=== PATIENT | male | born 1950 | race Caucasian/White ===

== ENCOUNTER 2016-10-25 17:05 | Inpatient (IN) | payer MEDICARE, OTHER ==
[~2016-10-25] VITALS: Ht 182.9 cm; Wt 73.3 kg
[~2016-10-25 17:05] MED LIST: ACET325T14 PO; ASPI-496 PO; CHOL20002 PO; ENOX40SY4 SQ; HYDR-3138 PO; INSU100I18 SQ-INSULIN; LATA2.5D2 EACHEYE; LEVO100T PO; LEVO125T PO; LEVO1CAP3 PO; SENN1TAB7 PO; SILO8CAP PO; TIZA4TAB PO
[2016-10-25 18:44] LABS: HEMOGLOBIN 13.6 g/dL (13.7-18.0)
[2016-10-25 18:54] LABS: BLOOD UREA NITROGEN 15 mg/dL (7-18)
[2016-10-25 18:58] LABS: ASPARTATE AMINO TRANSFERASE 16 U/L (15-37)
[2016-10-25] MEDS ORDERED: SODIUM CHLORIDE FLUSH 10ML SYR IVF ONE (19:30)
[2016-10-25] MEDS ORDERED: OMNIPAQUE 350 MG/ML, 100ML BOTTLE ONE (22:05)
[2016-10-25] MEDS ORDERED: LEVO100T5 PO (22:31)
[2016-10-25] MEDS ORDERED: SODIUM CHLORIDE 0.9% 1,000 ML IV ONE (22:33)
[2016-10-25] MEDS ORDERED: HEPARIN 25,000 UNITS/500ML PMX 500 ML IV PRN (23:00)
[2016-10-25] MEDS ORDERED: SODIUM CHLORIDE FLUSH 10ML SYR IVF PRN (23:00)
[2016-10-25] MEDS ORDERED: HEPARIN 5,000 UNITS/ML, 1ML IV PRN (23:00)
[2016-10-25] MEDS ORDERED: HEPARIN 5,000 UNITS/ML, 1ML IV ONE (23:00)
[2016-10-25] MEDS ORDERED: HEPARIN 25,000 UNITS/500ML PMX 500 ML ONE (23:13)
[2016-10-25] MEDS ORDERED: HEPARIN 5,000 UNITS/ML, 1ML ONE (23:13)
[2016-10-26 00:29] VITALS: BP 156/93
[2016-10-26] MEDS ORDERED: INSULIN ASPART 100 UNITS/ML, PEN SQ-INSULIN SCH (02:00)
[2016-10-26 04:32] VITALS: BP 145/79
[2016-10-26] MEDS: LEVOTHYROXINE 100 MCG TABLET PO SCH (06:20)
[2016-10-26 06:50] VITALS: BP 156/84
[2016-10-26] MEDS: ASPIRIN 81 MG TABLET EC PO SCH (07:36)
[2016-10-26] MEDS ORDERED: ENOX80SY5 SQ (11:52)
[2016-10-26 12:50] VITALS: BP_SYST 144; BP_SYST 162; BP_DIAS 76; BP_DIAS 85
[2016-10-26] MEDS: ENOXAPARIN 80 MG/0.8 ML SQ SCH (17:30)
[2016-10-26] MEDS: WARFARIN 5 MG TABLET PO-COUM SCH (18:46)
[2016-10-26 19:30] VITALS: BP 175/85
[2016-10-26] MEDS: CHOLECALCIFEROL 1,000 UNIT TABLET PO SCH (20:29)
[2016-10-26] MEDS: LATANOPROST OPHTH 0.005%, 2.5ML EACHEYE SCH (21:05)
[2016-10-27 04:55] VITALS: BP 138/71
[2016-10-27] MEDS: LEVOTHYROXINE 100 MCG TABLET PO SCH (04:59)
[2016-10-27] MEDS: ENOXAPARIN 80 MG/0.8 ML SQ SCH ×2 (05:00→17:30)
[2016-10-27 06:30] LABS: HEMOGLOBIN 12.7 g/dL (13.7-18.0)
[2016-10-27 07:14] VITALS: BP 153/80
[2016-10-27] MEDS: ASPIRIN 81 MG TABLET EC PO SCH (09:26)
[2016-10-27] MEDS ORDERED: APAP/CODEINE 300/30MG TABLET PO PRN (10:30)
[2016-10-27] MEDS: GUAIFENESIN ER 600 MG TABLET PO SCH ×3 (12:14→21:28)
[2016-10-27 13:00] VITALS: BP 155/83
[2016-10-27] MEDS: WARFARIN 5 MG TABLET PO-COUM SCH (17:38)
[2016-10-27 19:06] VITALS: BP 146/81
[2016-10-27] MEDS: CHOLECALCIFEROL 1,000 UNIT TABLET PO SCH (21:28)
[2016-10-27] MEDS: LATANOPROST OPHTH 0.005%, 2.5ML EACHEYE SCH (21:28)
[2016-10-28 01:29] VITALS: BP 130/72
[2016-10-28] MEDS: ENOXAPARIN 80 MG/0.8 ML SQ SCH (05:55)
[2016-10-28] MEDS ORDERED: LEVOTHYROXINE 125 MCG TABLET PO SCH (06:00)
[2016-10-28 07:45] VITALS: BP 149/85
[2016-10-28] MEDS ORDERED: GUAI600T22 PO (08:40)
[2016-10-28] MEDS ORDERED: WARF5TAB PO-COUM (08:40)
[2016-10-28] MEDS ORDERED: ACET1TAB64 PO (08:40)
[2016-10-28] MEDS: ASPIRIN 81 MG TABLET EC PO SCH (08:56)
[2016-10-28] MEDS: GUAIFENESIN ER 600 MG TABLET PO SCH (08:56)
== END 2016-10-28 12:17 | disposition home or self-care (01) | DRG 299 ==
LOC: ED 21:42 → EDIP 22:33 → 4WST 23:57 → DCLOUNGE 10-28 11:23
PROVIDERS: ADMIT Internal Medicine; ATTEND Internal Medicine
DX: I82.402 Acute embolism and thrombosis of unspecified deep veins of left lower extremity (principal); I26.99 Other pulmonary embolism without acute cor pulmonale; M80.059A Age-related osteoporosis with current pathological fracture, unspecified femur, initial encounter for fracture; I10 Essential (primary) hypertension; G62.9 Polyneuropathy, unspecified; E03.9 Hypothyroidism, unspecified; E11.9 Type 2 diabetes mellitus without complications; E78.5 Hyperlipidemia, unspecified; H26.9 Unspecified cataract; N40.0 Benign prostatic hyperplasia without lower urinary tract symptoms; Z79.4 Long term (current) use of insulin; Z85.818 Personal history of malignant neoplasm of other sites of lip, oral cavity, and pharynx; Z80.42 Family history of malignant neoplasm of prostate; Z82.49 Family history of ischemic heart disease and other diseases of the circulatory system; Z96.41 Presence of insulin pump (external) (internal)
CPT/HCPCS: 36415; 71275; 80053; 83036; 84443; 85014; 85018; 85025; 85520; 85610; 85730; 93005; 96365; 96376; J1644; J1650; Q9967

== ENCOUNTER → 2017-03-09 | Outpatient (CLI) | payer MEDICARE, OTHER ==
[~2017-03-09] MED LIST changes: +ACET1TAB64 PO; +ENOX80SY5 SQ; +GUAI600T22 PO; +LEVO100T5 PO; +WARF5TAB PO-COUM
== END | disposition home or self-care (01) ==
LOC: CFH 13:11
PROVIDERS: ATTEND Internal Medicine Endocrinology, Diabetes & Metabolism
DX: Z13.820 Encounter for screening for osteoporosis (principal); M85.80 Other specified disorders of bone density and structure, unspecified site; E11.9 Type 2 diabetes mellitus without complications
CPT/HCPCS: 77080

== ENCOUNTER → 2017-04-22 | Outpatient (CLI) | payer MEDICARE ==
[~2017-04-22] MED LIST changes: -GUAI600T22 PO; +GUAI600T31 PO; -HYDR-3138 PO; +HYDR-3237 PO
== END | disposition home or self-care (01) ==
LOC: CFH 08:36
PROVIDERS: ATTEND Internal Medicine Cardiovascular Disease
DX: R00.2 Palpitations (principal); I82.402 Acute embolism and thrombosis of unspecified deep veins of left lower extremity; E11.9 Type 2 diabetes mellitus without complications
CPT/HCPCS: 78452; 93017; A9502

== ENCOUNTER → 2017-09-12 | Outpatient (CLI) | payer MEDICARE, OTHER | END | disposition home or self-care (01) | LOC: CFH 11:11 | PROVIDERS: ATTEND Internal Medicine Cardiovascular Disease | DX: I82.502 Chronic embolism and thrombosis of unspecified deep veins of left lower extremity (principal) | CPT/HCPCS: 93970 ==

== ENCOUNTER 2020-05-13 08:37 | Outpatient (CLI) | payer MEDICARE ==
[~2020-05-13 08:37] MED LIST changes: -CHOL20002 PO; +CHOL200052 PO; +REGADENOSON 0.4 MG/5 ML SYRINGE ONE; +SENN-177 PO; -SENN1TAB7 PO; -SILO8CAP PO; +SILO8CAP2 PO; -TIZA4TAB PO; +TIZA4TAB2 PO; -WARF5TAB PO-COUM; +WARF5TAB2 PO-COUM
== END 2020-05-13 23:59 | disposition home or self-care (01) ==
LOC: CFH 08:37
PROVIDERS: ATTEND Internal Medicine Cardiovascular Disease
DX: R00.2 Palpitations (principal); I10 Essential (primary) hypertension
CPT/HCPCS: 78452; 93017; A9502; J2785

== ENCOUNTER 2021-04-17 06:51 | Outpatient (CLI) | payer MEDICARE ==
[~2021-04-17 06:51] MED LIST changes: -REGADENOSON 0.4 MG/5 ML SYRINGE ONE
== END 2021-04-17 23:59 | disposition home or self-care (01) ==
LOC: CVU 06:51
PROVIDERS: ATTEND Internal Medicine Cardiovascular Disease
DX: I65.23 Occlusion and stenosis of bilateral carotid arteries (principal); R42 Dizziness and giddiness
CPT/HCPCS: 93880